=== PATIENT | female | born 1955 | race Caucasian/White ===

== ENCOUNTER → 2022-01-03 | Outpatient (CLI) | payer OTHER | LOC: RAD 14:53 | DX: Z01.810 Encounter for preprocedural cardiovascular examination (principal); R94.31 Abnormal electrocardiogram [ECG] [EKG] | CPT/HCPCS: 93005 ==

== ENCOUNTER → 2022-07-15 | Outpatient (CLI) | payer OTHER | LOC: HEART 5 09:30 | DX: R07.9 Chest pain, unspecified (principal); R00.2 Palpitations; R00.0 Tachycardia, unspecified | CPT/HCPCS: 93306 ==

== ENCOUNTER → 2022-08-01 | Outpatient (CLI) | payer OTHER ==
[~2022-08-01] VITALS: Ht 160 cm; Wt 60.8 kg
== END ==
LOC: OPSV 13:28
DX: Z45.2 Encounter for adjustment and management of vascular access device (principal); C76.0 Malignant neoplasm of head, face and neck; C10.9 Malignant neoplasm of oropharynx, unspecified
CPT/HCPCS: 96523; J1642